=== PATIENT | male | born 1980 | race Caucasian/White ===

== ENCOUNTER 2021-05-13 20:33 | Emergency (ER) | payer BC, SELFPAY ==
[2021-05-13 20:34] VITALS: BP 126/73; PULSE 114; RESP 18; TEMP 36.9; O2SAT 99; BMI 18.7
[2021-05-13 20:51] VITALS: BP 130/72; PULSE 105; RESP 18; TEMP 36.9; O2SAT 97; BMI 14.7
--- NOTE | 2021-05-13 20:55 | HMH.EDUTC ---
[facility] [place] Disposition Clinical Impression: UTI (urinary tract infection) Qualifiers: Urinary tract infection type: site unspecified Hematuria presence: with hematuria Qualified Code(s): N39.0 - Urinary tract infection, site not specified Disposition: Home, Self-Care Condition on Discharge: Good Instructions: Urinary Tract Infection, DI for Urinary Tract Infection (UTI) Additional Instructions: Return to the er [facility] if your symptoms are not getting some better within the next 24 hours. Preferably return tomorrow if you're no better. Follow up with your primary care doctor. Take the medications as directed. Take ibuprofen or tylenol for your pain and fever. I sent zofran (ondesetron) in to your pharmacy. If you begin to have nausea please get this and take it. Not being able to hold the antibiotic down will let you get sicker. DRINK PLENTY OF FLUIDS. STOP ON YOUR WAY HOME AND GET SOME GATORADE OR ANOTHER DRINK WITH ELECTROLYTES IN IT. GO TO THE ER FOR ANY WORSENING SYMPTOMS OR CONCERNS Prescriptions: Ondansetron [Zofran 4mg ODT] 4 mg PO Q8HP PRN #20 tab.rapdis PRN Reason: Nausea Ondansetron [Zofran 4mg ODT] 4 mg PO Q8HP PRN #20 tab.rapdis PRN Reason: Nausea [id number] Ciprofloxacin HCl [Cipro 500mg Tab] 500 mg PO BID 14 Days #28 tab Transmission Status: Received by [id number] Referrals: Provider,Referral, MD [Primary Care Provider] - Forms: Work/School Release Time of Disposition: 21:18 Medical Decision Making - Medical Records Medical records reviewed: No: I reviewed the patient's medical records. - Rock Inquiry Pt receiving controlled substance: No Vital Signs: 05/13/21 20:34 05/13/21 20:51 05/13/21 21:11 Temperature 98.5 F 98.5 F 98.6 F Temperature Source Oral Oral Oral Pulse Rate 106 H Pulse Rate [Left Radial] 114 H 105 H Respiratory Rate 18 18 18 Blood Pressure 131/69 Blood Pressure [Right Arm] 126/73 130/72 Blood Pressure Mean [Right Arm] 90 91 Blood Pressure Source [Right Arm] Automatic Cuff Blood Pressure Position [Right Arm] Sitting 02 Sat by Pulse Oximetry 99 97 Oxygen Delivery Method Room Air - Lab Data Lab results reviewed: Yes: I reviewed the patient's lab results. Lab Results 05/13/21 20:58: Urine Color Dark yellow, Urine Appearance Cloudy, Urine pH 5.5, Ur Specific [place] 1.020, Urine Protein 1+, Urine Glucose (UA) Negative, Urine Ketones Negative, Urine Blood 3+, Urine Nitrate Positive A, Urine Bilirubin Negative, Urine Urobilinogen 1, Ur Leukocyte Esterase 1+ A Orders (Tests/Meds): ED MEDICATIONS Discontinued Medications Generic Name Dose Route Start Last Admin Trade Name Jesu PRN Reason Stop Dose Admin Levofloxacin 500 mg 05/13/21 21:07 05/13/21 21:09 Levofloxacin 500mg Tab PO 05/13/21 21:08 500 mg ONCE ONE Administration Protocol ORDERS Category Date Time Status Urine Culture Stat Micro 05/13/21 20:56 Received Medical Decision Narrative: I wanted to send him thru the ER for more in depth workup due to his history of kidney stones, but he refuses at this time. He states that he wants to get started on antibiotics tonight and he will come back to the ER if he gets worse. [facility] [place] HPI - General Stated complaint: fever, possible ticks Time Seen by Provider: 05/13/21 20:55 Mode of Arrival: Ambulatory Source of Information: Patient Limitations: No Limitations Description of Symptoms (Recalled from Triage Doc. by RN): pt states he has been running a high fever, having body aches and overall just feels like shit. pt believes he is sick due to tick bites. he does have R side pain that comes and goes. HEENT Symptoms (Recalled from RN notes): No Resp Symptoms (Recalled from RN notes): No Skin Symptoms (Recalled from RN notes): Yes (pinprick spots on back from tick bites) MS Symptoms (Recalled from RN notes): No Functional Status (Recalled from
[2021-05-13 20:59] LABS: Apearance,Urine Cloudy (Clear); Color,Urine Dark Yellow (Yellow); Glucose,Urine (UA) Negative (Negative); Ketones,Urine Negative (Negative); PH,Urine 5.5 (5.0-8.5); Protein,Urine 1+ (Negative)
[2021-05-13 21:00] LABS: Bilirubin,Urine Negative (Negative); Blood, Urine 3+ (Negative); UTC Leukocyte Esterase,Urine 1+ (Negative); UTC Nitrate,Urine Positive (Negative); Urobilinogen,Urine 1 EU/dl (0.2)
[2021-05-13 21:11] VITALS: BP 131/69; PULSE 106; RESP 18; TEMP 37
== END 2021-05-13 21:23 | disposition home or self-care (01) ==
PROVIDERS: Emergency Provider Nurse Practitioner Family
DX: N30.00 Acute cystitis without hematuria (principal); S30.860A Insect bite (nonvenomous) of lower back and pelvis, initial encounter; W57.XXXA Bitten or stung by nonvenomous insect and other nonvenomous arthropods, initial encounter; Z87.442 Personal history of urinary calculi; F17.210 Nicotine dependence, cigarettes, uncomplicated
CPT/HCPCS: 81003; 87086; 87088; 87186; 99202; G0463